=== PATIENT | female | born 1985 | race Caucasian/White ===

== ENCOUNTER 2018-12-23 18:22 | Inpatient (IN) ==
[2018-12-23] MEDS ORDERED: Naloxone 0.4 MG/ML INJ IVP PRN (21:05)
[2018-12-23] MEDS ORDERED: Calcium Gluconate 1gm/50mL 1 GM/50 ML BAG IVPB PRN (21:06)
[2018-12-23] MEDS ORDERED: Potassium Phosphate 44 MEQ in 0.9 % Sodium Chloride 250 ML IVPB PRN (21:06)
[2018-12-23] MEDS ORDERED: D5% in Water 1,000 ML IVC PRN (21:09)
[2018-12-23] MEDS ORDERED: Dextrose Gel 15 GM/37.5 ML TUBE PO PRN ×2 (21:09)
[2018-12-23] MEDS ORDERED: *HR* Dextrose 50 % in Water (Syg) 50 ML SYRINGE IVP PRN (21:09)
--- NOTE | 2018-12-23 21:12 | Internal Med History&Physical ---
<Anni Ball - Last Filed: 12/24/18 01:00> Date of Encounter: 12/24/18 Time of Encounter: 21:11 Internal Medicine - H&P: HPI Chief complaint: Suspected overdose Admitted From: Hospital to Hospital Transfer History of present illness: Ms. Florian is a 33 year old female seen at the [place] emergency department for reported intentional overdose of baclofen. On arrival to [facility], patient unable to participate in review of systems or history gathering, no family or visitors present at bedside and history gathered from review of records. Per review of ED report, bystanders called in the overdose and patient received 2 mg Narcan by squad prior to arrival without response. At [place], patient was hemodynamically stable and afebrile with O2 sat 100%, she intubated after arrival to ED for airway protection as result of overdose and tube placement confirmed on CXR. Initial workup from [place] shows unremarkable CBC, K 3.2, UA with trace leukocyte esterase and bacteria, urine tox positive for amphetamin es. Patient intubated on mechanical ventilation and sedated on propofol at time of my exam. She appeared comfortable and in no acute distress. PMH: hepatitis C (unconfirmed) Family history: unable to obtain as patient is intubated and sedated Social hx: tobacco use Past Med Surg Social Fam HX - Past Medical History Medical history: hepatitis, other Additional medical history: Hep C Psychiatric history: no psych history - Past Surgical History Additional surgical history: ureteral surgery - Social History Smoking Status: Current every day smoker Smokeless Tobacco Status: No Alcohol use: none Drug use: none Internal Medicine - H&P: Meds cephALEXin [Cephalexin] 1,000 mg PO TID 10 Days #60 tablet 12/12/18 [Rx] Allergy/AdvReac Type Severity Reaction Status Date / Time sulfamethoxazole Allergy Seizure Verified 12/23/18 17:31 [From Bactrim] trimethoprim [From Bactrim] Allergy Seizure Verified 12/23/18 17:31 ROS unobtainable: due to endotracheal tube All Systems PM: A 10-system review of systems was performed and is negative for pertinent findings except as documented above in the HPI. - Constitutional Exam: General: No acute distress, sedated on mechanical ventilation HEENT: head normocephalic/atraumatic, PERRL, sclera anicteric, moist mucus membranes Neck: Supple, trachea midline Cardio: bradicardic, no murmurs, +S1/S2 Pulm: CTAB, no wheezing/rhonchi/rales, equal chest rise Abdomen: soft, nontender, no rebound/rigidity/distention Extremities: No LE edema, no cyanosis, no clubbing, right forearm bruising noted Neuro: unable to asssess mental status due to sedation and intubation, no response to verbal stimuli, not following commands MSK: no visible deformities, no joint swelling, no joint erythema Skin: clean, dry, intact, no visible rashes - Assessment and Plan (1) Acute encephalopathy Current Visit: Yes Status: Acute Assessment and plan: Acute encephalopathy secondary to suspected drug overdose in patient with 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 Intubated in [place] ED to maintain secure airway secondary to acute encephalopathy from suspected drug overdose Bradycardia HR 50's with elevated SBP/DBP, likely secondary to presence of amphetamines UDS pos amphetamines--of note, neg barbiturates which makes likelihood of Baclofen overdose less likely Toxicology negative for evidence of salicylate, APAP, EtoH poisoning Afebrile, no leukocytosis and unremarkable CBC Metabolic panel shows mild hypokalemia (3.2), otherwise no other electrolyte abnormalities [place] EKG shows normal sinus rhythm, regular rate, no ST elevations or depressions, no T-wave inversions, slightly prolonged QTc 483 CXR confirms correct placement of ET tube, negative for evidence of acute cardiopulmonary process Electrolyte replacement as needed, repeat metabolic panel in AM Anticipate blood pressures will gradually normalize as her body continues to wash out amphetamines Continue cardiac monitoring and mechanical ventilation for now, re-evaluate in AM (2) On mechanically assisted ventilation Current Visit: Yes Status: Acute Assessment and plan: Intubated in [place] ED to maintain secure airway secondary to acute encephalopathy from suspected drug overdose Repeat CXR confirms appropriate placement of ET tube above ivy Initial ABG pH 7.37 / pCO2 47 / pO2 197 / HCO3 27 Repeat ABG in AM for adjustment of vent settings, consider weaning from vent in AM (3) Hypokalemia Current Visit: Yes Status: Acute Assessment and plan: Check Mg and phosphorus levels Repeat metabolic panel in AM Electrolyte protocol, IV potassium replacement (4) Positive urine drug screen Current Visit: Yes Status: Acute Assessment and plan: Unconfirmed presumptive positive for amphetamines Urine barbiturates screen negative (5) Substance use disorder Current Visit: Yes Status: Acute Assessment and plan: Review of the available records report previous amphetamine abuse (6) DVT prophylaxis Current Visit: Yes Status: Acute Assessment and plan: Heparin 5000 units subcutaneously Q12H - Time Spent With Patient Total time spent is greater than 50% in coordination of care (as documented) at patient's floor/unit and/or counseling patient: Kimberly Tomas - Last Filed: 12/24/18 04:15> Date of Encounter: 12/23/18 All Systems PM: A 10-system review of systems was performed and is negative for pertinent findings except as documented above in the HPI. - Constitutional Vitals: Temp Pulse Resp BP Pulse Ox 97.9 F 60 14 159/108 100 12/23/18 21:00 12/23/18 22:00 12/23/18 22:00 12/23/18 22:00 12/23/18 22:00 Internal Med - H&P Results - ABG Interpretation ABG results: 12/23/18 21:55 ABG pH 7.37 ABG pCO2 47 H ABG pO2 197 H ABG HCO3 27 ABG Total CO2 28 H ABG O2 Saturation 100 H ABG Base Excess 1 - Impressions ITS Impressions Chest X-Ray 12/23/18 22:15 IMPRESSION: 1. Lines and tubes appear in appropriate position. 2. No acute cardiopulmonary disease. D/ / 12/23/2018 22:23:50 Kasandra Bill MD / [facility] Interpreting Provider: Kasandra Bill MD - Time Spent With Patient Total time spent is greater than 50% in coordination of care (as documented) at patient's floor/unit and/or counseling patient: - Attending Attestation I performed a history and physical exam of the patient and discussed management with the resident. I reviewed the resident's note and agree with the documented findings and plan of care. Vero Florian is a 33-year-old woman with substance use disorder who was taken to [place] emergency room and an apparent overdose. UDS only remarkable for amphetamines. Blood work grossly unremarkable except a mild hypokalemia at 3.2. Physical exam remarkable for well-developed woman sedated on mechanical ventilation with no obvious anomalies detected. We will keep her sedated overnight with propofol given her agitation and aggression noted when sedation was discontinued temporarily and can be transitioned to dexmedetomidine for the purpose of weaning. CCT 50 mins. YESICA LEAVITT.
[2018-12-23] MEDS ORDERED: Potassium Chloride 40 MEQ, Lidocaine 1% 2 ML in 0.9 % Sodium Chloride 500 ML IVPB ONE (21:32)
[2018-12-23] MEDS ORDERED: Ringers Solution, Lactated 1,000 ML IVC SCH (21:45)
[2018-12-23 21:58] LABS: ABG Base Excess 1 mEq/L (-2 to 3); ABG HCO3 27 mEq/L (21-27); ABG Oxygen Saturation 100 % (95-98); ABG PCO2 47 mmHg (35-45); ABG PH 7.37 pH Units (7.32-7.45); ABG PO2 197 mmHg (85-104); ABG TCO2 28 mEq/L (20-26); Blood Gas Modality AF; Blood Gas PEEP 5 cm H2O; Blood Gas VT 400 cc
[2018-12-24] MEDS: Insulin LISPRO 300 UNITS/3 ML VIAL SQ SCH ×3 (01:06→15:46)
[2018-12-24 04:40] LABS: ABG Base Excess 0 mEq/L (-2 to 3); ABG HCO3 27 mEq/L (21-27); ABG Oxygen Saturation 98 % (95-98); ABG PCO2 50 mmHg (35-45); ABG PH 7.34 pH Units (7.32-7.45); ABG PO2 122 mmHg (85-104); ABG TCO2 28 mEq/L (20-26); Blood Gas Modality AF; Blood Gas PEEP 5 cm H2O; Blood Gas VT 400 cc
[2018-12-24 05:23] LABS: Basophils # 0.1 K/mcL (0.0-0.2); Basophils % 0.7 %; Eosinophils # 0.2 K/mcL (0.0-0.6); Hemoglobin 13.7 g/dL (11.5-15.4); Immature Granulocytes % 0.5 % (0-4); Lymphocytes # 2.7 K/mcL (0.6-4.6); Lymphocytes % 29.8 %; Mean Corpuscular HGB Conc 34.3 g/dL (31.6-35.5); Mean Corpuscular Hemoglobin 30.7 pg (28.0-33.3); Mean Corpuscular Volume 89.7 fL (83.0-100.0); Mean Platelet Volume 9.8 fL (9.4-12.4); Monocytes # 0.7 K/mcL (0.0-1.3); Monocytes % 7.2 %; Neutrophils # 5.5 K/mcL (1.6-8.9); Platelet Count 281 K/mcL (140-400); Red Blood Count 4.46 M/mcL (3.82-4.97); Segmented Neutrophils % 59.8 %; White Blood Count 9.2 K/mcL (4.3-11.1)
[2018-12-24 05:29] LABS: Prothrombin Time 11.6 Seconds (9.4-12.1)
[2018-12-24 05:31] LABS: Activated Partial Thrombo Time 31.2 Seconds (26.0-36.0)
[2018-12-24 05:43] LABS: BUN/Creatinine Ratio 15 (6-26); Blood Urea Nitrogen 6 mg/dL (6-20); Calcium 9.1 mg/dL (8.6-10.3); Carbon Dioxide 23 mEq/L (23-29); Chloride 111 mEq/L (98-107); Glucose 85 mg/dL (70-105); Osmolality,Calculated 293 (280-300); Potassium 3.8 mEq/L (3.5-5.1); Sodium 143 mEq/L (136-145); eGFR For African Americans > 60 (> 60); eGFR For Non-African Americans > 60 (> 60)
[2018-12-24 05:44] LABS: Albumin 4.3 g/dL (3.5-5.7); Albumin/Globulin Ratio 1.1 (1.1-2.2); Bilirubin,Direct 0.2 mg/dL (0.0-0.2); Bilirubin,Indirect 0.9 mg/dL (0.0-1.2); Bilirubin,Total 1.1 mg/dL (0.3-1.0); Globulin 3.8 g/dL (2.4-3.5); Magnesium 2.4 mg/dL (1.6-2.6); Phosphorous 2.9 mg/dL (2.7-4.5); Total Protein 8.1 g/dL (6.4-8.9)
[2018-12-24] MEDS ORDERED: *HR* Heparin 5,000 UNIT/ML VIAL SQ SCH (06:00)
[2018-12-24] MEDS ORDERED: Acetaminophen 325 MG TABLET PO PRN ×2 (08:46→15:57)
--- NOTE | 2018-12-24 09:34 | Electrocardiograph Report ---
[place] [id number] Test Date: 2018-12-24 Pat Name: Vero Florian Department: 109 Room: [facility] Gender: F [employer]: : [id number] Requested By: [id number] Order Number: [id number] Reading MD: Jose Cisneros Measurements Intervals [place] Rate: 60 P: 80 [place]: 152 QRS: 72 QRSD: 109 T: 71 QT: 467 QTc: 467 Interpretive Statements SINUS RHYTHM INCOMPLETE RIGHT BUNDLE BRANCH BLOCK Electronically Signed On 12-24-2018 9:32:02 EDT by Jose Cisneros
--- NOTE | 2018-12-24 09:52 | Pulmonology Consult Note ---
<Paul Hdz S - Last Filed: 12/24/18 15:39> Date of Encounter: 12/24/18 Time of Encounter: 09:52 Assessment and Plan (1) Drug overdose Current Visit: Yes Status: Acute Patient states she took 20 tablets of baclofen, and a dose of 20 mg each, exceeding toxic dose in adults of 200 mg Initially intubated for airway protection * Successfully extubated today * Baclofen half-life approximately 4 hours, should be free of effects by this afternoon * Patient to be observed by one-on-one sitter at all times * If vital signs remained stable, patient is okay for down grade from the unit this afternoon Qualifiers: Encounter type: initial encounter Injury intent: undetermined intent Qualified Code(s): T50.904A - Poisoning by unspecified drugs, medicaments and biological substances, undetermined, initial encounter (2) On mechanically assisted ventilation Current Visit: Yes Status: Resolved Successfully extubated this morning Patient reports sore throat after removal of endotracheal tube (3) Acute encephalopathy Current Visit: Yes Status: Acute Baclofen toxicity results and [employer] depression, baclofen withdrawal can result in encephalopathy. No lab indications of any infectious source for her altered mental status Blood pressures improved after extubation, no focal deficits on exam * Continue to monitor for altered mental status, psychomotor agitation or retardation On repeat exam at 15:00, patient is intermittently hyperalert, followed by a decline in alertness until she is nearly asleep, and then jolts awaken and is back to a state of hyper alertness. Some psychomotor agitation noted. She is fixating on the thought that she is going to , repeatedly asking if she is dying and intermittently stating that she is dying and going to , despite repeated assurances that this is not the case. She responded incorrectly to the questions "will a stone float?" And "does December come before October?" She correctly answer the question "how many days or in a week?" She was unable to come up with her response to the question "does a horse sleep in a nest?" When asked her daughters' names, she answered somewhat incoherently, but was able to state her full name. * After transfer, considers psych consult for acute delirium History of Present Illness Consult date: 12/24/18 Requesting physician: Eric Stein Reason for consult: other (intubated) Chief complaint: Intubation secondary to overdose History of present illness: Mrs. Florian is a 33-year-old female who was intubated in the ED after overdose on baclofen. She was intubated earlier this morning, remained minimally responsive until early afternoon. She was reinterviewed upon return of her mentation nearer to her baseline - She states that she took approximately 20 tablets, of 20 mg each. States this was not an attempt to hurt herself. Aunt is at the bedside on exam, I will repeat questioning later without family members in the room. She is complaining of throat pain, and seems to be recovering from some amnesia, as she had an extremely emotional reaction to hearing that her mother had recently . Past Med Surg Social Fam HX - Past Medical History Medical history: hepatitis, other Additional medical history: Hep C Psychiatric history: no psych history - Past Surgical History Additional surgical history: ureteral surgery - Social History Smoking Status: Current every day smoker Smokeless Tobacco Status: No Alcohol use: none Drug use: none Medications and Allergies cephALEXin [Cephalexin] 1,000 mg PO TID 10 Days #60 tablet 12/12/18 [Rx] Allergy/AdvReac Type Severity Reaction Status Date / Time sulfamethoxazole Allergy Seizure Verified 12/23/18 17:31 [From Bactrim] trimethoprim [From Bactrim] Allergy Seizure Verified 12/23/18 17:31 All Systems: The remainder of the systems were reviewed and are negative - Constitutional Constitutional: no excessive sweating, no fever(s) - EENT Nose, mouth and throat: dry mouth, hoarseness - Cardiovascular Cardiovascular: no chest pain, no dyspnea, no lightheadedness - Respiratory Respiratory: cough (Productive of decreasing amounts of sputum since extubation), no wheezing, no pain with cough - Gastrointestinal Gastrointestinal: no abdominal pain, no nausea Physical Examination Vital Signs: Vital Signs, Last 4 Hours Temp Pulse Resp BP Pulse Ox 12/24/18 09:00 62 16 158/101 100 12/24/18 08:00 60 16 161/103 100 12/24/18 07:30 18 100 12/24/18 07:15 97.9 F 12/24/18 07:00 61 20 164/112 100 12/24/18 06:00 58 14 162/107 100 General appearance: agitated Eyes: nonicteric ENT: oropharynx moist Effort: normal Inspection: normal Auscultation: bilateral: clear Gastrointestinal: normoactive bowel sounds, soft, non-distended Integumentary: normal Extremities: no cyanosis Musculoskeletal: no deformities anxious, depressed, tearful, other (Experiencing intermittent confusion, agitation. Has) Ventilator Settings Ventilator Settings: Ventilator Settings, Last 8 Hours Ventilator Tidal Volume 400 Setting Ventilator Tidal Volume 400 Setting Ventilator Tidal Volume 400 Setting Ventilator Tidal Volume 400 Setting Ventilator Tidal Volume 400 Setting Ventilator Tidal Volume 400 Setting Ventilator Tidal Volume 400 Setting Ventilator Tidal Volume 400 Setting Ventilator Tidal Volume 400 Setting Ventilator Tidal Volume 400 Setting Ventilator Tidal Volume 400 Setting Ventilator Tidal Volume 400 Setting Ventilator Respiratory Rate 14 Setting Ventilator Respiratory Rate 14 Setting Ventilator Respiratory Rate 14 Setting Ventilator Respiratory Rate 14 Setting Ventilator Respiratory Rate 14 Setting Ventilator Respiratory Rate 14 Setting Ventilator Respiratory Rate 14 Setting Ventilator Respiratory Rate 14 Setting Ventilator Respiratory Rate 14 Setting Ventilator Respiratory Rate 14 Setting Ventilator Respiratory Rate 14 Setting Ventilator Respiratory Rate 14 Setting Actual Respiratory Rate 16 Actual Respiratory Rate 18 Actual Respiratory Rate 15 Actual Respiratory Rate 16 Actual Respiratory Rate 14 Actual Respiratory Rate 16 Actual Respiratory Rate 14 Actual Respiratory Rate 14 Actual Respiratory Rate 14 Actual Respiratory Rate 14 Actual Respiratory Rate 14 Positive End Expiratory 5 Pressure Positive End Expiratory 5 Pressure Positive End Expiratory 5 Pressure Positive End Expiratory 5 Pressure Positive End Expiratory 5 Pressure Positive End Expiratory 5 Pressure Positive End Expiratory 5 Pressure Positive End Expiratory 5 Pressure Positive End Expiratory 5 Pressure Positive End Expiratory 5 Pressure Positive End Expiratory 5 Pressure Positive End Expiratory 5 Pressure Peak Inspiratory Airway 16 Pressure Peak Inspiratory Airway 17 Pressure Peak Inspiratory Airway 15 Pressure Peak Inspiratory Airway 18 Pressure Peak Inspiratory Airway 22 Pressure Peak Inspiratory Airway 22 Pressure Peak Inspiratory Airway 19 Pressure Peak Inspiratory Airway 20 Pressure Peak Inspiratory Airway 20 Pressure Peak Inspiratory Airway 20 Pressure Peak Inspiratory Airway 20 Pressure Results - Laboratory Findings CBC and BMP: 12/24/18 04:48 12/24/18 04:48 ABG ABG pH 7.34 pH Units (7.32-7.45) 12/24/18 04:36 ABG pCO2 50 mmHg (35-45) H 12/24/18 04:36 ABG pO2 122 mmHg (85-104) H 12/24/18 04:36 ABG O2 Saturation 98 % (95-98) 12/24/18 04:36 PT/INR, D-dimer PT 11.6 Seconds (9.4-12.1) 12/24/18 04:48 Abnormal lab findings: Abnormal lab results ABG pCO2 50 mmHg (35-45) H 12/24/18 04:36 ABG pO2 122 mmHg (85-104) H 12/24/18 04:36 ABG Total CO2 28 mEq/L (20-26) H 12/24/18 04:36 ABG O2 Saturation 100 % (95-98) H 12/23/18 21:55 Chloride 111 mEq/L (98-107) H 12/24/18 04:48 Creatinine 0.41 mg/dL (0.60-1.20) L 12/24/18 04:48 Total Bilirubin 1.1 mg/dL (0.3-1.0) H 12/24/18 04:48 Globulin 3.8 g/dL (2.4-3.5) H 12/24/18 04:48 - Clinical Findings Intake & Output: Intake & Output 12/23/18 12/24/18 12/24/18 23:59 07:59 15:59 Intake Total 1522 / 1567 45 / 1567 Output Total 100 / 190 340 / 340 Balance -100 / -190 1182 / 1227 45 / 1227 Weight 54.2 kg Consult Discharge Plan - Plan Referrals: NONE,PCP [Primary Care Provider] - <Lukasz Javier S - Last Filed: 12/24/18 19:37> Date of Encounter: 12/24/18 All Systems: The remainder of the systems were reviewed and are negative Physical Examination Vital Signs: Vital Signs, Last 4 Hours Temp Pulse Resp BP Pulse Ox 12/24/18 19:01 98.6 F 12/24/18 18:00 98 15 139/77 100 12/24/18 16:00 79 14 132/83 100 Results - Laboratory Findings CBC and BMP: 12/24/18 04:48 12/24/18 04:48 ABG ABG pH 7.34 pH Units (7.32-7.45) 12/24/18 04:36 ABG pCO2 50 mmHg (35-45) H 12/24/18 04:36 ABG pO2 122 mmHg (85-104) H 12/24/18 04:36 ABG O2 Saturation 98 % (95-98) 12/24/18 04:36 PT/INR, D-dimer PT 11.6 Seconds (9.4-12.1) 12/24/18 04:48 Abnormal lab findings: Abnormal lab results ABG pCO2 50 mmHg (35-45) H 12/24/18 04:36 ABG pO2 122 mmHg (85-104) H 12/24/18 04:36 ABG Total CO2 28 mEq/L (20-26) H 12/24/18 04:36 ABG O2 Saturation 100 % (95-98) H 12/23/18 21:55 Chloride 111 mEq/L (98-107) H 12/24/18 04:48 Creatinine 0.41 mg/dL (0.60-1.20) L 12/24/18 04:48 Total Bilirubin 1.1 mg/dL (0.3-1.0) H 12/24/18 04:48 Globulin 3.8 g/dL (2.4-3.5) H 12/24/18 04:48 - Clinical Findings Intake & Output: Intake & Output 12/24/18 12/24/18 12/24/18 07:59 15:59 23:59 Intake Total 1522 / 1807 45 / 1807 240 / 1807 Output Total 340 / 590 250 / 590 Balance 1182 / 1217 -205 / 1217 240 / 1217 - Attending Attestation I saw and evaluated this patient and my medical decision-making was reviewed with the Resident Physician. I agree with the documented findings, disposition and treatment plan as described except to the extent set forth below. We independently had [id number] contact with the patient I spent 40 minutes of Critical Care time with this patient. It involved decision making of high complexity to assess, manipulate, and support vital organ system failure and/or to prevent further life threatening deterioration of the patient's condition. The time involved in the performance of separately reportable procedures was not counted toward critical care time. Patient seen and examined at bedside Labs, radiology, chart personally reviewed. Management was reviewed during multidisciplinary critical care rounds. [employer]: Patient was sedated no focal neurological deficit present the sedation was lightened the patient was agitated not following commands most likely due to toxic/metabolic encephalopathy after a few hours patient settled Pulm: Patient has excellent oxygenation and ventilation to do spontaneous breathing trial when she is more awake will extubated to nasal cannula then liberate oxygen as tolerated. Cards: Patient is hemodynamically stable patient did not overdose on any QT prolonging agents I personally saw the EKG with the normal QRS and QT. FEN-GI: After extubating to advance diet as tolerated Renal: Labs and output were reviewed ID: No active infectious disease Heme/Onc: Labs reviewed Endo: Glucose Monitored Integ/MSK: Skin Care per routine ICU Nursing Protocol to prevent ulcers. Lines: All lines examined without evidence of infection : Dispo: To monitor after extubation. CODE: Full Code
--- NOTE | 2018-12-24 12:03 | Internal Med Progress Note ---
Hospitalist Progress Note - Encounter Date of Encounter: 12/24/18 Time of Encounter: 11:57 - Subjective Interval History: History of present illness: Ms. Florian is a 33 year old female seen at the [facility] emergency department for reported intentional overdose of baclofen. On arrival to [facility], patient unable to participate in review of systems or history gathering, no family or visitors present at bedside and history gathered from review of records. Per review of ED report, bystanders called in the overdose and patient received 2 mg Narcan by squad prior to arrival without response. At [facility], patient was hemodynamically stable and afebrile with O2 sat 100%, she intubated after arrival to ED for airway protection as result of overdose and tube placement confirmed on CXR. Initial workup from [facility] shows unremarkable CBC, K 3.2, UA with trace leukocyte esterase and bacteria, urine tox positive for amphetamines. Patient intubated on mechanical ventilation and sedated on propofol at time of my exam. She appeared comfortable and in no acute distress. 12/24: Patient was successfully extubated this morning. She still is not answering questions but will respond to verbal stimuli. Thus far when I attempted to talk to her she would grimace and appears if she is getting teary-eyed but would not answer any questions. I do not see any focal deficits. Repeat lab work is fairly normal, no anion gap, no acidemia. Her vitals remained stable and she is satting 100% on 2 L. Is a sitter at the bedside. We still have an obvious etiology for her altered mental status although the emergency room stated that they were concerned that perhaps there is a bottle of baclofen at home. This cannot be confirmed at the moment. - Exam Vitals: Temp Pulse Resp BP Pulse Ox 97.8 F 66 17 135/87 100 12/24/18 11:10 12/24/18 11:00 12/24/18 11:00 12/24/18 11:00 12/24/18 11:00 Exam: General: No acute distress, nontoxic appearance HEENT: head normocephalic/atraumatic, PERRL, sclera anicteric, moist mucus membranes Neck: Supple, trachea midline Cardio: bradicardic, no murmurs, +S1/S2 Pulm: CTAB, no wheezing/rhonchi/rales, equal chest rise Abdomen: soft, nontender, no rebound/rigidity/distention Extremities: No LE edema, no cyanosis, no clubbing, right forearm bruising noted Neuro: Grimaces and opens eyes when spoken to, not answering questions but has wet cough. 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 Intubated in [facility] ED to maintain secure airway secondary to acute encephalopathy from suspected drug overdose Extubated this AM UDS pos amphetamines--of note, neg barbiturates which makes likelihood of Dominguez lofen overdose less likely Toxicology negative for evidence of salicylate, APAP, EtoH poisoning Afebrile, no leukocytosis and unremarkable CBC Metabolic panel shows mild hypokalemia (3.2), otherwise no other electrolyte abnormalities [facility] EKG shows normal sinus rhythm, regular rate, no ST elevations or depressions, no T-wave inversions, slightly prolonged QTc 483 CXR confirms correct placement of ET tube, negative for evidence of acute cardiopulmonary process 12/24: Vitals are stable and she is satting well on room air. Remains encephalopathic. No obvious infection. Stable transfer to [facility]. Continue with serial bedside and continue close monitoring. (3) Hypokalemia Current Visit: Yes Status: Acute Assessment and plan: Check Mg and phosphorus levels Repeat metabolic panel in AM Electrolyte protocol, IV potassium replacement 12/24: Resolved (4) Positive urine drug screen Current Visit: Yes Status: Acute Assessment and plan: Unconfirmed presumptive positive for amphetamines Urine barbiturates screen negative (5) Substance use disorder Current Visit: Yes Status: Acute Assessment and plan: Review of the available records report previous amphetamine abuse (6) DVT prophylaxis Current Visit: Yes Status: Acute Assessment and plan: Heparin 5000 units subcutaneously Q12H - Time Spent with Patient Total time spent is greater than 50% in coordination of care (as documented) at patient's floor/unit and/or counseling patient: Greater than 35 minutes Internal Medicine: Result - Labs CBC & Chem 7: 12/24/18 04:48 12/24/18 04:48 Labs: Short CBC 12/24/18 Range/Units 04:48 WBC 9.2 (4.3-11.1) K/mcL Hgb 13.7 D (11.5-15.4) g/dL Hct 40.0 (35.3-44.9) % Plt Count 281 (140-400) K/mcL Neutrophils # 5.5 (1.6-8.9) K/mcL BMP 12/24/18 04:48 Sodium 143 Potassium 3.8 Chloride 111 H Carbon Dioxide 23 BUN 6 Creatinine 0.41 L Glucose 85 Calcium 9.1 Liver Function 12/24/18 Range/Units 04:48 Total Bilirubin 1.1 H (0.3-1.0) mg/dL Direct Bilirubin 0.2 (0.0-0.2) mg/dL AST 19 (13-39) Units/L ALT 21 (7-52) Units/L Alkaline Phosphatase 93 (34-104) Units/L Albumin 4.3 (3.5-5.7) g/dL - ABG Interpretation ABG results: ABG ABG pH 7.34 pH Units (7.32-7.45) 12/24/18 04:36 ABG pCO2 50 mmHg (35-45) H 12/24/18 04:36 ABG pO2 122 mmHg (85-104) H 12/24/18 04:36 ABG O2 Saturation 98 % (95-98) 12/24/18 04:36 PT/INR, D-dimer PT 11.6 Seconds (9.4-12.1) 12/24/18 04:48 - Impressions Impressions Chest X-Ray 12/23/18 22:15 IMPRESSION: 1. Lines and tubes appear in appropriate position. 2. No acute cardiopulmonary disease. D/ / 12/23/2018 22:23:50 Kasandra Bill MD / [facility] Interpreting Provider: Kasandra Bill MD Consult Discharge Plan - Plan Referrals: NONE,PCP [Primary Care Provider] -
[2018-12-24 13:38] LABS: Hepatitis B Surface Antigen Nonreactive (Nonreactive)
[2018-12-24 14:15] LABS: Hepatitis A Antibody IgM Nonreactive (Nonreactive); Hepatitis B Core IgM Nonreactive (Nonreactive)
[2018-12-24] MEDS ORDERED: *HR* Dextrose 50 % in Water (Syg) 50 ML SYRINGE IVP PRN (15:57)
[2018-12-24] MEDS ORDERED: Naloxone 0.4 MG/ML INJ IVP PRN (15:57)
[2018-12-24] MEDS: *HR* Heparin 5,000 UNIT/ML VIAL SQ SCH (17:32)
[2018-12-24] MEDS ORDERED: Insulin LISPRO 300 UNITS/3 ML VIAL SQ SCH (18:00)
[2018-12-24 22:58] LABS: Hepatitis C Virus Antibody Reactive (Nonreactive)
[2018-12-25] MEDS: *HR* Heparin 5,000 UNIT/ML VIAL SQ SCH ×2 (05:48→18:49)
--- NOTE | 2018-12-25 07:53 | Internal Med Progress Note ---
Hospitalist Progress Note - Encounter Date of Encounter: 12/25/18 Time of Encounter: 09:00 - Subjective Interval History: No acute events overnight - Exam Vitals: Temp Pulse Resp BP Pulse Ox 98.1 F 72 18 143/87 100 12/25/18 07:10 12/25/18 07:10 12/25/18 07:10 12/25/18 07:10 12/25/18 07:10 Exam: General: No acute distress, nontoxic appearance HEENT: head normocephalic/atraumatic, PERRL, sclera anicteric, moist mucus membranes Neck: Supple, trachea midline Cardio: bradicardic, no murmurs, +S1/S2 Pulm: CTAB, no wheezing/rhonchi/rales, equal chest rise Abdomen: soft, nontender, no rebound/rigidity/distention Extremities: No LE edema, no cyanosis, no clubbing, right forearm bruising noted Neuro: Grimaces and opens eyes when spoken to, not answering questions but has wet cough. Not following commands MSK: no visible deformities, no joint swelling, no joint erythema Skin: clean, dry, intact, no visible rashes - Assessment and Plan (1) Acute encephalopathy Current Visit: Yes Status: Acute Assessment and Plan: Pt came in altered and unresponisve s/p suicide attempt with baclofen overdose Transferred out of the ICU yesterday. Still intermittently confused continue supportive care, plan to transfer [facility] once medically stable (2) Acute respiratory failure with hypoxia Current Visit: Yes Status: Acute Assessment and Plan: S/p intubation for failure to protect airways. Extubated and stable Saturating WNL on room air (3) Hypokalemia Current Visit: Yes Status: Acute Assessment and Plan: Replaced (4) Positive urine drug screen Current Visit: Yes Status: Acute Assessment and Plan: Counseled (5) Hepatitis C Current Visit: Yes Status: Chronic Assessment and Plan: Outpatient follow up (6) DVT prophylaxis Current Visit: Yes Status: Acute Assessment and Plan: heparin sc - Time Spent with Patient Total time spent is greater than 50% in coordination of care (as documented) at patient's floor/unit and/or counseling patient: Internal Medicine: Result - Labs CBC & Chem 7: 12/24/18 04:48 12/25/18 08:20 - ABG Interpretation ABG results: ABG ABG pH 7.34 pH Units (7.32-7.45) 12/24/18 04:36 ABG pCO2 50 mmHg (35-45) H 12/24/18 04:36 ABG pO2 122 mmHg (85-104) H 12/24/18 04:36 ABG O2 Saturation 98 % (95-98) 12/24/18 04:36 PT/INR, D-dimer PT 11.6 Seconds (9.4-12.1) 12/24/18 04:48 Consult Discharge Plan - Plan Referrals: NONE,PCP [Primary Care Provider] - _ (5) Hepatitis C Qualifiers: Viral hepatitis chronicity: unspecified Hepatic coma status: without hepatic coma Qualified Code(s): B19.20 - Unspecified viral hepatitis C without hepatic coma
[2018-12-25 09:35] LABS: BUN/Creatinine Ratio 9 (6-26); Blood Urea Nitrogen 4 mg/dL (6-20); Calcium 8.9 mg/dL (8.6-10.3); Carbon Dioxide 23 mEq/L (23-29); Chloride 102 mEq/L (98-107); Glucose 80 mg/dL (70-105); Osmolality,Calculated 276 (280-300); Potassium 3.2 mEq/L (3.5-5.1); Sodium 135 mEq/L (136-145); eGFR For African Americans > 60 (> 60); eGFR For Non-African Americans > 60 (> 60)
--- NOTE | 2018-12-25 10:44 | Consult Note ---
Date of Encounter: 12/25/18 Time of Encounter: 09:30 Assessment & Recommendation (1) Bipolar disorder Current visit: Yes Status: Acute Assessment & Recommendation: Patient had a serious suicide attempt. Once she is medically cleared we will take her onto 1A. Hold psychiatric medications at this time as she still seems to have some confusion related to the baclofen overdose. Qualifiers: Active/Remission status: currently active Current bipolar episode type: depressed Current episode severity: severe Psychotic features: with psychotic features Qualified Code(s): F31.5 - Bipolar disorder, current episode depressed, severe, with psychotic features History of Present Illness Requesting Physician: Eric Stein Reason for consult: suicide attempt History of present illness: Ms. Florian is a 33 year old female who was admitted after an overdose on baclofen. She says she took the overdose because she wanted to kill herself because there is a warrant out for her arrest for probation violation. She says she has been depressed with sad mood and decreased interests. She is still somewhat confused at this time and had some difficulty answering my questions. CC: Eric Stein Past Med Surg Social Fam HX - Past Medical History Medical history: hepatitis, other - Past Psychiatric History Psychiatric history: Reports: bipolar, prior suicide attempt, previous psychiatric hospitalization Past psychiatric history details: She is vague and has difficult answering questions specifically. She does endorse that she had a prior suicide attempt by overdosing on cocaine and that she has been in the hospital before saying that she was at "[place]". She says that she has been seen at [facility] and has been on [facility] and there "in the past. Family psychiatric history: Yes Family Psychiatric History Details: Mom drugs Family History of Suicide: Completed Family Suicide History Details: Uncle completed suicide in custodial - Social History Smoking Status: Current every day smoker Smokeless Tobacco Status: No Alcohol use: none Drug use: none Medications & Allergies No Known Home Drugs 12/24/18 [History] Allergy/AdvReac Type Severity Reaction Status Date / Time sulfamethoxazole Allergy Seizure Verified 12/23/18 17:31 [From Bactrim] trimethoprim [From Bactrim] Allergy Seizure Verified 12/23/18 17:31 Review of Systems Constitutional: Denies: fever Eyes: Denies: eye pain Ears, Nose, Throat: Denies: ear pain Cardiovascular: Denies: chest pain Respiratory: Denies: cough Gastrointestinal: Denies: abdominal pain Genitourinary female: Denies: urgency Musculoskeletal: Denies: back pain Integumentary: Denies: rash Neurological: Denies: headache Psychiatric: Reports: depression, suicidal ideation, auditory hallucinations, difficulty concentrating, hopelessness Endocrine: Reports: fatigue Hematologic/Lymphatic: Denies: easy bleeding Allergic/Immunologic: Denies: facial swelling Psychiatry Exam - Constitutional Vitals: Temp Pulse Resp BP Pulse Ox 98.1 F 72 18 143/87 100 12/25/18 07:10 12/25/18 07:10 12/25/18 07:10 12/25/18 07:10 12/25/18 07:10 General appearance: disheveled Additional observations: Standing at the window when I went in talking on the phone repeating "I do not want to " with her gown open and exposing her buttocks - Musculoskeletal Gait: slow Station: stooped Strength & Tone: normal for patient - Psychiatric Patient Orientation: Yes Person, Yes Time, Yes Place Level of alertness: Alert Behavior: impulsive, dramatic Psychomotor activity: Increased Eye Contact: Minimal Contact Mood Description: Depressed, Labile Patient description of mood: "I do not want to " Affect description: labile, inappropriate to situation Speech Volume: Loud Speech pattern: slowed Language & Vocabulary: limited Thought Process: Tangential Thought Content: Yes Suicidal ideation, No Homicidal ideation, Yes Paranoid delusion Perceptual Disturbances: Yes Auditory hallucinations Attention Span Ability: Unable to Focus, Unable to Sustain Attention Memory Description: Immediate Impaired Patient Reliability: Questionable Historian Fund of knowledge: Yes average Intelligence Estimate: Average Judgment: Poor Insight: None Results - Labs Labs: Laboratory Last Values WBC 9.2 K/mcL (4.3-11.1) 12/24/18 04:48 RBC 4.46 M/mcL (3.82-4.97) 12/24/18 04:48 Hgb 13.7 g/dL (11.5-15.4) D 12/24/18 04:48 Hct 40.0 % (35.3-44.9) 12/24/18 04:48 MCV 89.7 fL (83.0-100.0) 12/24/18 04:48 MCH 30.7 pg (28.0-33.3) 12/24/18 04:48 MCHC 34.3 g/dL (31.6-35.5) 12/24/18 04:48 RDW 13.0 % (11.5-14.5) 12/24/18 04:48 Plt Count 281 K/mcL (140-400) 12/24/18 04:48 MPV 9.8 fL (9.4-12.4) 12/24/18 04:48 Immature Gran % 0.5 % (0-4) 12/24/18 04:48 Seg Neutrophils % 59.8 % 12/24/18 04:48 Lymphocytes % 29.8 % 12/24/18 04:48 Monocytes % 7.2 % 12/24/18 04:48 Eosinophils % 2.0 % 12/24/18 04:48 Basophils % 0.7 % 12/24/18 04:48 Neutrophils # 5.5 K/mcL (1.6-8.9) 12/24/18 04:48 Lymphocytes # 2.7 K/mcL (0.6-4.6) 12/24/18 04:48 Monocytes # 0.7 K/mcL (0.0-1.3) 12/24/18 04:48 Eosinophils # 0.2 K/mcL (0.0-0.6) 12/24/18 04:48 Basophils # 0.1 K/mcL (0.0-0.2) 12/24/18 04:48 PT 11.6 Seconds (9.4-12.1) 12/24/18 04:48 INR 1.0 12/24/18 04:48 APTT 31.2 Seconds (26.0-36.0) 12/24/18 04:48 Sample Site R Radial 12/24/18 04:36 ABG pH 7.34 pH Units (7.32-7.45) 12/24/18 04:36 ABG pCO2 50 mmHg (35-45) H 12/24/18 04:36 ABG pO2 122 mmHg (85-104) H 12/24/18 04:36 ABG HCO3 27 mEq/L (21-27) 12/24/18 04:36 ABG Total CO2 28 mEq/L (20-26) H 12/24/18 04:36 ABG O2 Saturation 98 % (95-98) 12/24/18 04:36 ABG Base Excess 0 mEq/L (-2 to 3) 12/24/18 04:36 Hamzah Test Positive 12/24/18 04:36 Respiration Rate 14 12/24/18 04:36 O2 Delivery Device Adult Vent 12/24/18 04:36 Blood Gas Modality AF 12/24/18 04:36 Inspired O2 30.0 (1-15=lpm cp20-030=%) 12/24/18 04:36 Tidal Volume 400 cc 12/24/18 04:36 PEEP 5 cm H2O 12/24/18 04:36 Sodium 135 mEq/L (136-145) L 12/25/18 08:20 Potassium 3.2 mEq/L (3.5-5.1) L 12/25/18 08:20 Chloride 102 mEq/L (98-107) 12/25/18 08:20 Carbon Dioxide 23 mEq/L (23-29) 12/25/18 08:20 BUN 4 mg/dL (6-20) L 12/25/18 08:20 Creatinine 0.46 mg/dL (0.60-1.20) L 12/25/18 08:20 Est GFR ( Amer) > 60 (> 60) 12/25/18 08:20 Est GFR (Non-Af Amer) > 60 (> 60) 12/25/18 08:20 BUN/Creatinine Ratio 9 (6-26) 12/25/18 08:20 Glucose 80 mg/dL (70-105) 12/25/18 08:20 POC Glucose 95 mg/dL (70-99) 12/24/18 05:44 Calculated Osmolality 276 (280-300) L 12/25/18 08:20 Calcium 8.9 mg/dL (8.6-10.3) 12/25/18 08:20 Phosphorus 2.9 mg/dL (2.7-4.5) 12/24/18 04:48 Magnesium 2.4 mg/dL (1.6-2.6) 12/24/18 04:48 Total Bilirubin 1.1 mg/dL (0.3-1.0) H 12/24/18 04:48 Direct Bilirubin 0.2 mg/dL (0.0-0.2) 12/24/18 04:48 Indirect Bilirubin 0.9 mg/dL (0.0-1.2) 12/24/18 04:48 AST 19 Units/L (13-39) 12/24/18 04:48 ALT 21 Units/L (7-52) 12/24/18 04:48 Alkaline Phosphatase 93 Units/L (34-104) 12/24/18 04:48 Serum Total Protein 8.1 g/dL (6.4-8.9) 12/24/18 04:48 Albumin 4.3 g/dL (3.5-5.7) 12/24/18 04:48 Globulin 3.8 g/dL (2.4-3.5) H 12/24/18 04:48 Albumin/Globulin Ratio 1.1 (1.1-2.2) 12/24/18 04:48 Hepatitis A IgM Ab Nonreactive (Nonreactive) 12/24/18 11:44 Hep Bs Antigen Nonreactive (Nonreactive) 12/24/18 11:44 Hep B Core IgM Ab Nonreactive (Nonreactive) 12/24/18 11:44 Hepatitis C Ab Screen Reactive (Nonreactive) H 12/24/18 11:44 Consult Discharge Plan - Plan Referrals: NONE,PCP [Primary Care Provider] -
[2018-12-25] MEDS ORDERED: Acetaminophen 325 MG TABLET PO PRN (21:46)
[2018-12-26] MEDS: *HR* Heparin 5,000 UNIT/ML VIAL SQ SCH (05:54)
--- NOTE | 2018-12-26 07:58 | Internal Med Progress Note ---
Hospitalist Progress Note - Encounter Date of Encounter: 12/26/18 Time of Encounter: 09:00 - Subjective Interval History: No acute events overnight - Exam Vitals: Temp Pulse Resp BP Pulse Ox 98.0 F 69 16 115/69 98 12/26/18 04:43 12/26/18 04:43 12/26/18 04:43 12/26/18 04:43 12/26/18 04:43 Exam: General: No acute distress, nontoxic appearance HEENT: head normocephalic/atraumatic, PERRL, sclera anicteric, moist mucus membranes Neck: Supple, trachea midline Cardio: bradicardic, no murmurs, +S1/S2 Pulm: CTAB, no wheezing/rhonchi/rales, equal chest rise Abdomen: soft, nontender, no rebound/rigidity/distention Extremities: No LE edema, no cyanosis, no clubbing, right forearm bruising noted Neuro: Grimaces and opens eyes when spoken to, not answering questions but has wet cough. Not following commands MSK: no visible deformities, no joint swelling, no joint erythema Skin: clean, dry, intact, no visible rashes - Assessment and Plan (1) Acute encephalopathy Current Visit: Yes Status: Acute Assessment and Plan: Pt came in altered and unresponisve s/p suicide attempt with baclofen overdose Confusion has resolved. Replace potassium and transfer to psych today (2) Acute respiratory failure with hypoxia Current Visit: Yes Status: Acute Assessment and Plan: S/p intubation for failure to protect airways. Extubated and stable Saturating WNL on room air (3) Hypokalemia Current Visit: Yes Status: Acute Assessment and Plan: Replaced (4) Positive urine drug screen Current Visit: Yes Status: Acute Assessment and Plan: Counseled (5) Hepatitis C Current Visit: Yes Status: Chronic Assessment and Plan: Outpatient follow up (6) DVT prophylaxis Current Visit: Yes Status: Acute Assessment and Plan: heparin sc - Time Spent with Patient Total time spent is greater than 50% in coordination of care (as documented) at patient's floor/unit and/or counseling patient: Internal Medicine: Result - Labs CBC & Chem 7: 12/24/18 04:48 12/26/18 09:05 Labs: BMP 12/25/18 08:20 Sodium 135 L Potassium 3.2 L Chloride 102 Carbon Dioxide 23 BUN 4 L Creatinine 0.46 L Glucose 80 Calcium 8.9 - ABG Interpretation ABG results: ABG ABG pH 7.34 pH Units (7.32-7.45) 12/24/18 04:36 ABG pCO2 50 mmHg (35-45) H 12/24/18 04:36 ABG pO2 122 mmHg (85-104) H 12/24/18 04:36 ABG O2 Saturation 98 % (95-98) 12/24/18 04:36 PT/INR, D-dimer PT 11.6 Seconds (9.4-12.1) 12/24/18 04:48 Consult Discharge Plan - Plan Referrals: NONE,PCP [Primary Care Provider] - (5) Hepatitis C Qualifiers: Viral hepatitis chronicity: unspecified Hepatic coma status: without hepatic coma Qualified Code(s): B19.20 - Unspecified viral hepatitis C without hepatic coma
--- NOTE | 2018-12-26 08:48 | Discharge Summary ---
Orders not resulted at time of discharge: Pending orders 12/24/18 17:51 TricyclicAntidepressant Detect Routine Date of Encounter: 12/26/18 Time of Encounter: 08:00 - Discharge Diagnosis (1) Acute encephalopathy Priority: Primary Status: Acute Assessment and Plan: 33 year old female seen at the [place] emergency department for reported intentional overdose of baclofen. On arrival to [facility], patient unable to participate in review of systems or history gathering, no family or visitors present at bedside and history gathered from review of records. Per review of ED report, bystanders called in the overdose and patient received 2 mg Narcan by squad prior to arrival without response. At [facility], patient was hemodynamically stable and afebrile with O2 sat 100%, she intubated after arrival to ED for airway protection as result of overdose and tube placement confirmed on CXR. Initial workup from [facility] shows unremarkable CBC, K 3.2, UA with trace leukocyte esterase and bacteria, urine tox positive for amphetamines. Pt came in altered and unresponisve s/p suicide attempt with baclofen overdose. She was intubated for airway protection. She was successfully extubated and transferred out of the ICU to the floor. She still had some confusion on arrival to the floor yesterday but is now lucid and answers questions appropriately but appears depressed. She has some hypokalemia which will be replaced. Medically stable for psych transfer once repeat potassium is greater than or equal to 3.5 (2) Acute respiratory failure with hypoxia Priority: Primary Status: Acute Assessment and Plan: S/p intubation for failure to protect airways. Extubated and stable Saturating WNL on room air (3) Hypokalemia Priority: Primary Status: Acute (4) Hepatitis C Priority: Primary Status: Chronic Qualifiers: Viral hepatitis chronicity: unspecified Hepatic coma status: without hepatic coma Qualified Code(s): B19.20 - Unspecified viral hepatitis C without hepatic coma (5) Positive urine drug screen Priority: Primary Status: Acute (6) DVT prophylaxis Priority: Primary Status: Acute Hospital course: Ms. Florian is a 33 year old female - Time Spent with Patient Total time spent providing and/or coordinating discharge services: - Discharge Medications Prescriptions: No Action No Known Home Drugs 1 each .ROUTE AD each Home Medications: No Known Home Drugs 12/24/18 [History] Allergies/Adverse Reactions: Allergy/AdvReac Type Severity Reaction Status Date / Time sulfamethoxazole Allergy Seizure Verified 12/23/18 17:31 [From Bactrim] trimethoprim [From Bactrim] Allergy Seizure Verified 12/23/18 17:31 Date of admission: 12/23/18 20:59 Primary care physician: PCP NONE Consults: 12/23/18 21:08 Consult to Critical Care [CONS] Routine Consulting Provider: Pulm [facility] Reason for Consult: ventilator management of pt with suspected overdose Call Completed: No 12/24/18 09:21 Consult to Pulmonology [CONS] Routine Consulting Provider: Pulm [facility] [place] Reason for Consult: overdose, on ventilator Time Notified: 09:22 Call Completed: Yes 12/24/18 17:16 Consult to Psychiatry [CONS] Routine Consulting Provider: Psychiatry Karen Reason consult: Other Other reason and/or additional details: admit for baclofen overdose. suspect suicide attempt. Time Notified: 17:24 Call Completed: Yes - Constitutional Vitals: Temp Pulse Resp BP Pulse Ox 98.0 F 69 16 115/69 98 12/26/18 04:43 12/26/18 04:43 12/26/18 04:43 12/26/18 04:43 12/26/18 04:43 Exam: NAD - Head Head exam: Present: atraumatic, normocephalic - Eye Eye exam: Present: PERRL, conjuntiva pink, sclera anicteric Pupils: Present: PERRL - Neck Neck exam general surgery: Present: supple, trachea midline. Absent: lymphadenopathy - Respiratory Respiratory exam: Present: CTAB. Absent: accessory muscle use, rales, rhonchi, wheezes - Cardiovascular Cardiovascular exam: Present: RRR, +S1, +S2. Absent: diastolic murmur, gallop, rubs, systolic murmur - GI/Abdominal GI/Abdominal exam: Present: normal bowel sounds, soft, no peritoneal signs. Absent: distended, tenderness - Extremities Exam Extremities exam: Present: warm, radial pulses palpable and symmetrical. Absent: calf tenderness, cyanotic, pedal edema - Neurological Exam Neurological exam: Present: CN II-XII intact, oriented X3, no focal deficits. Absent: pronater drift, facial droop, speech deficit - Skin Skin exam: Present: dry, intact - Patient Status Disposition: Home, Self-Care Condition: Good - Discharge Instructions Follow Up With: NONE,PCP [Primary Care Provider] -
[2018-12-26 09:37] LABS: BUN/Creatinine Ratio 12 (6-26); Blood Urea Nitrogen 6 mg/dL (6-20); Calcium 8.8 mg/dL (8.6-10.3); Carbon Dioxide 26 mEq/L (23-29); Chloride 106 mEq/L (98-107); Glucose 114 mg/dL (70-105); Osmolality,Calculated 276 (280-300); Sodium 134 mEq/L (136-145); eGFR For African Americans > 60 (> 60); eGFR For Non-African Americans > 60 (> 60)
[2018-12-26] MEDS: Potassium Chloride Elixir 20 MEQ/15 ML UDC PO SCH ×2 (10:25→13:14)
[2018-12-26 12:07] VITALS: BP 105/66
[2018-12-26] MEDS ORDERED: FLU Vac QV 19-20 (6Month+)/PF 0.5 ML SYRINGE IM ONE (12:43)
== END 2018-12-26 13:48 | disposition home or self-care (01) | DRG 817 ==
LOC: ICNU 20:59 → 2ANU 12-24 21:01
PROVIDERS: ADMIT Internal Medicine; ATTEND Internal Medicine

== ENCOUNTER → 2021-05-01 20:54 | Observation (INO) ==
[2021-05-01 19:19] LABS: Bilirubin,Urine Negative (Negative); Blood,Urine Negative (Negative); Clarity,Urine Clear (Clear); Color,Urine Yellow (Yellow); Glucose,Urine (UA) Normal (Normal); Ketones,Urine Negative (Negative); Leukocyte Esterase,Urine Negative (Negative); Nitrite,Urine Negative (Negative); Protein,Urine Trace mg/dL (Neg-Trace); Specific Gravity,Urine 1.024 (1.010-1.025)
[2021-05-01 20:13] LABS: Influenza A PCR Negative (Negative); Influenza B PCR Negative (Negative); Resp. Syncytial Virus PCR Negative (Negative)
[2021-05-01 20:15] LABS: SARS-CoV-2 by PCR (In House) Negative (Negative)
[~2021-05-01 20:54] MED LIST: Acetaminophen/Butalbital/CaffeineTABLET PO ONE; FLU Vac QV 21-22 (6Month+)/PF 0.5 ML SYRINGE IM ONE; Ondansetron ODT 4 MG TAB.RAPDIS SL PRN
== END | disposition home or self-care (01) ==
LOC: 1NENULAB
PROVIDERS: ADMIT Advanced Practice Midwife; ATTEND Advanced Practice Midwife

== ENCOUNTER → 2021-07-05 13:30 | Observation (INO) ==
[2021-07-05 12:39] LABS: Basophils # 0.1 K/mcL (0.0-0.2); Basophils % 0.7 %; Eosinophils # 0.2 K/mcL (0.0-0.6); Eosinophils % 1.4 %; Hematocrit 33.1 % (35.3-44.9); Hemoglobin 11.5 g/dL (11.5-15.4); Immature Granulocytes % 2.5 % (0-4); Lymphocytes # 2.8 K/mcL (0.6-4.6); Lymphocytes % 24.7 %; Mean Corpuscular HGB Conc 34.7 g/dL (31.6-35.5); Mean Corpuscular Hemoglobin 30.8 pg (28.0-33.3); Mean Corpuscular Volume 88.7 fL (83.0-100.0); Mean Platelet Volume 10.2 fL (9.4-12.4); Monocytes # 0.7 K/mcL (0.0-1.3); Monocytes % 6.2 %; Neutrophils # 7.3 K/mcL (1.6-8.9); Platelet Count 199 K/mcL (140-400); Red Blood Count 3.73 M/mcL (3.82-4.97); Segmented Neutrophils % 64.5 %; White Blood Count 11.3 K/mcL (4.3-11.1)
[2021-07-05 12:57] LABS: Protein/Creatinine Ratio,Urine 0.17 mg/mg (0.00-0.20)
[2021-07-05 12:58] LABS: Alanine Aminotransferase 12 Units/L (7-52); Aspartate Amino Transferase 19 Units/L (13-39); BUN/Creatinine Ratio 15 (6-26); Blood Urea Nitrogen 6 mg/dL (6-20); Lactate Dehydrogenase 111 Units/L (140-271); Uric Acid 3.4 mg/dL (2.3-7.6); eGFR For African Americans > 60 (> 60); eGFR For Non-African Americans > 60 (> 60)
== END | disposition home or self-care (01) ==
LOC: 1NENULAB
PROVIDERS: ADMIT Advanced Practice Midwife; ATTEND Advanced Practice Midwife

== ENCOUNTER → 2021-08-19 15:43 | Observation (INO) | END | disposition home or self-care (01) | LOC: 1NENULAB | PROVIDERS: ADMIT Obstetrics & Gynecology; ATTEND Obstetrics & Gynecology ==

== ENCOUNTER 2021-08-20 11:29 | Observation (INO) ==
[2021-08-20 12:25] LABS: Basophils # 0.1 K/mcL (0.0-0.2); Basophils % 0.7 %; Eosinophils # 0.2 K/mcL (0.0-0.6); Hematocrit 35.1 % (35.3-44.9); Hemoglobin 12.1 g/dL (11.5-15.4); Immature Granulocytes % 3.3 % (0-4); Lymphocytes # 2.5 K/mcL (0.6-4.6); Lymphocytes % 21.4 %; Mean Corpuscular HGB Conc 34.5 g/dL (31.6-35.5); Mean Corpuscular Hemoglobin 30.9 pg (28.0-33.3); Mean Corpuscular Volume 89.8 fL (83.0-100.0); Mean Platelet Volume 10.5 fL (9.4-12.4); Monocytes # 0.8 K/mcL (0.0-1.3); Neutrophils # 7.6 K/mcL (1.6-8.9); Platelet Count 205 K/mcL (140-400); Red Blood Count 3.91 M/mcL (3.82-4.97); Red Cell Distribution Width 13.4 % (11.5-14.5); Segmented Neutrophils % 65.6 %; White Blood Count 11.6 K/mcL (4.3-11.1)
[2021-08-20 12:35] LABS: Protein/Creatinine Ratio,Urine 0.23 mg/mg (0.00-0.20)
[2021-08-20 12:47] LABS: Alanine Aminotransferase 50 Units/L (7-52); Aspartate Amino Transferase 56 Units/L (13-39); BUN/Creatinine Ratio 22 (6-26); Blood Urea Nitrogen 8 mg/dL (6-20); Lactate Dehydrogenase 146 Units/L (140-271); Uric Acid 3.2 mg/dL (2.3-7.6); eGFR For African Americans > 60 (> 60); eGFR For Non-African Americans > 60 (> 60)
== END 2021-08-20 14:22 | disposition home or self-care (01) ==
LOC: 1NENULAB
PROVIDERS: ADMIT Advanced Practice Midwife; ATTEND Advanced Practice Midwife

== ENCOUNTER 2021-09-03 14:07 | Inpatient (IN) ==
[2021-09-03] MEDS ORDERED: Ringers Solution, Lactated 1,000 ML ONE (15:21)
[2021-09-03] MEDS ORDERED: Lidocaine 1% 20 ML MDV ID PRN (15:38)
[2021-09-03] MEDS ORDERED: Naloxone 0.4 MG/ML INJ IVP PRN (15:38)
[2021-09-03] MEDS ORDERED: Metoclopramide 10 MG/2 ML VIAL IVP PRN (15:38)
[2021-09-03] MEDS ORDERED: Famotidine 20 MG/2 ML VIAL IVP PRN (15:38)
[2021-09-03] MEDS ORDERED: Azithromycin 500 MG in 0.9 % Sodium Chloride 250 ML IVPB PRN (15:38)
[2021-09-03] MEDS ORDERED: *HR* Nalbuphine 10 MG/ML AMPUL IV PRN (15:38)
[2021-09-03 15:57] LABS: Basophils # 0.1 K/mcL (0.0-0.2); Basophils % 0.7 %; Eosinophils # 0.2 K/mcL (0.0-0.6); Eosinophils % 1.8 %; Hematocrit 35.5 % (35.3-44.9); Hemoglobin 12.3 g/dL (11.5-15.4); Lymphocytes % 28.8 %; Mean Corpuscular HGB Conc 34.6 g/dL (31.6-35.5); Mean Corpuscular Hemoglobin 30.9 pg (28.0-33.3); Mean Corpuscular Volume 89.2 fL (83.0-100.0); Mean Platelet Volume 10.7 fL (9.4-12.4); Monocytes # 0.8 K/mcL (0.0-1.3); Monocytes % 7.6 %; Neutrophils # 6.2 K/mcL (1.6-8.9); Platelet Count 203 K/mcL (140-400); Red Blood Count 3.98 M/mcL (3.82-4.97); Red Cell Distribution Width 13.5 % (11.5-14.5); Segmented Neutrophils % 59.1 %; White Blood Count 10.5 K/mcL (4.3-11.1)
[2021-09-03 16:05] LABS: Amphetamine Screen,Urine Negative ng/mL (Cutoff=1000); Barbiturate Screen,Urine Negative ng/mL (Cutoff=200); Benzodiazepines Screen,Urine Negative ng/mL (Cutoff=200); Cannabinoid Screen,Urine Negative ng/mL (Cutoff = 50); Cocaine Screen,Urine Negative ng/mL (Cutoff= 300); Opiate Screen,Urine Negative ng/mL (Cutoff=300); Phencyclidine Screen,Urine Negative ng/mL (Cutoff=25)
[2021-09-03] MEDS: Ondansetron 4 MG/2 ML VIAL IVP PRN (16:26)
[2021-09-03] MEDS: Ringers Solution, Lactated 1,000 ML IVC SCH (16:27)
[2021-09-03 17:41] LABS: Influenza A PCR Negative (Negative); Influenza B PCR Negative (Negative); Resp. Syncytial Virus PCR Negative (Negative)
[2021-09-03 17:42] LABS: SARS-CoV-2 by PCR (In House) Negative (Negative)
[2021-09-03] MEDS ORDERED: Oxytocin 30 UNIT/503 ML BAG IVC SCH (18:30)
[2021-09-04] MEDS: Ringers Solution, Lactated 1,000 ML IVC SCH (00:37)
[2021-09-04] MEDS ORDERED: Ropivacaine/PF 0.2% 20 ML VIAL ONE (05:11)
[2021-09-04] MEDS ORDERED: *HR* FentaNYL (PF) 100 MCG/2 ML VIAL ONE (05:11)
[2021-09-04] MEDS ORDERED: Epidural Premix (fent/bupiv) 110 ML EP ONE ×2 (05:30→13:09)
[2021-09-04] MEDS: Ondansetron 4 MG/2 ML VIAL IVP PRN (11:18)
[2021-09-04] MEDS ORDERED: Piperacillin/Tazobactam 3.375 GM in 0.9 % Sodium Chloride Mini Bag 100 ML IVPB SCH (16:00)
[2021-09-04] MEDS ORDERED: Benzocaine/Menthol 56 GM AEROSOL SPRAY TP PRN (16:52)
[2021-09-04] MEDS ORDERED: Measles/Mumps/Rubella Vacc 0.5 ML VIAL SQ PRN (16:52)
[2021-09-04] MEDS ORDERED: Lanolin 7 G OINT...G. TP PRN (16:52)
[2021-09-04] MEDS ORDERED: Rho Immune Globulin 1,500 UNIT SYRINGE IM PRN (16:52)
[2021-09-04] MEDS ORDERED: Ondansetron ODT 4 MG TAB.RAPDIS SL PRN (16:52)
[2021-09-04] MEDS ORDERED: Oxytocin 30 UNIT/503 ML BAG IVC SCH (16:52)
[2021-09-04 20:25] LABS: Basophils % 0.2 %; Eosinophils % 0.2 %; Hematocrit 35.4 % (35.3-44.9); Immature Granulocytes % 1.1 % (0-4); Lymphocytes # 1.8 K/mcL (0.6-4.6); Lymphocytes % 10.9 %; Mean Corpuscular HGB Conc 33.9 g/dL (31.6-35.5); Mean Corpuscular Hemoglobin 30.7 pg (28.0-33.3); Mean Corpuscular Volume 90.5 fL (83.0-100.0); Mean Platelet Volume 11.2 fL (9.4-12.4); Monocytes # 1.1 K/mcL (0.0-1.3); Monocytes % 6.8 %; Neutrophils # 13.4 K/mcL (1.6-8.9); Platelet Count 168 K/mcL (140-400); Red Blood Count 3.91 M/mcL (3.82-4.97); Red Cell Distribution Width 13.8 % (11.5-14.5); Segmented Neutrophils % 80.8 %
[2021-09-04 20:26] LABS: White Blood Count 16.6 K/mcL (4.3-11.1)
[2021-09-04 20:33] LABS: Alanine Aminotransferase 38 Units/L (7-52); Aspartate Amino Transferase 48 Units/L (13-39); BUN/Creatinine Ratio 16 (6-26); Blood Urea Nitrogen 10 mg/dL (6-20); Lactate Dehydrogenase 219 Units/L (140-271); Uric Acid 4.9 mg/dL (2.3-7.6); eGFR For African Americans > 60 (> 60); eGFR For Non-African Americans > 60 (> 60)
[2021-09-04 21:44] VITALS: TEMP 97.9
[2021-09-04] MEDS: Ibuprofen 600 MG TABLET PO SCH ×2 (21:49→23:49)
[2021-09-04] MEDS: Acetaminophen 325 MG TABLET PO SCH ×2 (21:49→23:49)
[2021-09-05] MEDS ORDERED: Piperacillin/Tazobactam 3.375 GM in 0.9 % Sodium Chloride Mini Bag 100 ML IVPB SCH
[2021-09-05 03:51] LABS: Basophils % 0.2 %; Eosinophils # 0.2 K/mcL (0.0-0.6); Hematocrit 32.1 % (35.3-44.9); Hemoglobin 10.9 g/dL (11.5-15.4); Immature Granulocytes % 1.1 % (0-4); Lymphocytes # 2.9 K/mcL (0.6-4.6); Lymphocytes % 17.4 %; Mean Corpuscular Hemoglobin 30.5 pg (28.0-33.3); Mean Corpuscular Volume 89.9 fL (83.0-100.0); Mean Platelet Volume 10.8 fL (9.4-12.4); Monocytes # 1.1 K/mcL (0.0-1.3); Monocytes % 6.9 %; Neutrophils # 12.1 K/mcL (1.6-8.9); Platelet Count 156 K/mcL (140-400); Red Blood Count 3.57 M/mcL (3.82-4.97); Red Cell Distribution Width 13.7 % (11.5-14.5); Segmented Neutrophils % 73.4 %; White Blood Count 16.6 K/mcL (4.3-11.1)
[2021-09-05 06:31] VITALS: BP 112/72; PULSE 58; O2SAT 99
[2021-09-05] MEDS ORDERED: Prenatal Vit/FA 1 EACH TABLET PO SCH (09:00)
[2021-09-05] MEDS: Ibuprofen 600 MG TABLET PO SCH (10:52)
[2021-09-05] MEDS: Acetaminophen 325 MG TABLET PO SCH (10:52)
[2021-09-05 11:04] LABS: Alanine Aminotransferase 38 Units/L (7-52); Aspartate Amino Transferase 54 Units/L (13-39); BUN/Creatinine Ratio 14 (6-26); Blood Urea Nitrogen 9 mg/dL (6-20); Lactate Dehydrogenase 179 Units/L (140-271); Uric Acid 4.5 mg/dL (2.3-7.6); eGFR For African Americans > 60 (> 60); eGFR For Non-African Americans > 60 (> 60)
== END 2021-09-05 15:01 | disposition home or self-care (01) | DRG 560 ==
LOC: 1NENULAB 14:07 → 1NENUOBS 09-04 16:49
PROVIDERS: ADMIT Student in an Organized Health Care Education/Training Program; ATTEND Student in an Organized Health Care Education/Training Program